=== PATIENT | female | born 1980 | race African-American/Black ===

== ENCOUNTER 2016-10-18 11:53 | Emergency (ER) | payer OTHER ==
--- NOTE | ~2016-10-18 | EKG ---
PATIENT: JONO HERNANDEZ UNIT #: [id number] Ventricular Rate: 87 BPM Atrial Rate: 87 BPM P-R Interval: 140 ms QRS Duration: 88 ms Q-T Interval: 374 ms QTC Calculation(Bezet): 450 ms P [place]: 43 degrees Calculated R [place]: 84 degrees Calculated T [place]: 12 degrees Diagnosis Line: Normal sinus rhythm Diagnosis Line: Normal ECG Diagnosis Line: No previous ECGs available Diagnosis Line: Confirmed by CHASE BRAY MD ([id number]) on Diagnosis Line: 10/20/2016 3:50:56 PM INTERPRETING MD: KATARINA MCNEAL
[~2016-10-18 11:53] MED LIST: ROBITUSSIN PO
== END 2016-10-18 14:10 | disposition home or self-care (01) ==
LOC: SED 11:53
DX: I10 Essential (primary) hypertension (principal); F17.210 Nicotine dependence, cigarettes, uncomplicated
CPT/HCPCS: 93005; 99284